=== PATIENT | female | born 1985 | race Caucasian/White ===

== ENCOUNTER 2019-04-14 14:43 | Emergency (ER) | payer SELFPAY ==
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
[2019-04-14 16:05] VITALS: BP 135/91; PULSE 77; RESP 19; TEMP 36.8; O2SAT 100
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
== END 2019-04-14 18:02 | disposition home or self-care (01) ==
PROVIDERS: Emergency Provider Emergency Medicine
DX: S02.2XXA Fracture of nasal bones, initial encounter for closed fracture (principal); S06.0X0A Concussion without loss of consciousness, initial encounter; W51.XXXA Accidental striking against or bumped into by another person, initial encounter
CPT/HCPCS: 70486; 99284; A9270